=== PATIENT | male | born 1975 | race Caucasian/White ===

== ENCOUNTER 2016-10-22 14:24 | Emergency (ER) | payer OTHER | END 2016-10-22 21:52 | disposition home or self-care (01) | LOC: ER 14:24 | DX: S30.0XXA Contusion of lower back and pelvis, initial encounter (principal); X50.0XXA Overexertion from strenuous movement or load, initial encounter; Y92.9 Unspecified place or not applicable; F17.210 Nicotine dependence, cigarettes, uncomplicated; Z88.0 Allergy status to penicillin | CPT/HCPCS: 72100; 99283-25 ==